=== PATIENT | female | born 1960 | race Asian ===

== ENCOUNTER 2017-10-13 11:48 | Day surgery (SDC) | payer OTHER ==
[~2017-10-13 11:48] MED LIST: Lactated Ringers 1,000 ML IV SCH
--- NOTE | 2017-10-13 12:28 | PCM.PREANE ---
Preanesthetic Assessment - Anesthesia/Transfusion/Family Hx Anesthesia History: Prior Anesthesia Without Reaction Family History of Anesthesia Reaction: No Transfusion History: No Prior Transfusion(s) Intubation History: Unknown - Review of Systems General: No Symptoms Pulmonary: No Symptoms Cardiovascular: No Symptoms Gastrointestinal: Constipation, Hematochezia Neurological: No Symptoms Other: Reports: None - Physical Assessment Height: 1.63 m Weight: 68.946 kg ASA Class: 2 Mental Status: Alert & Oriented x3 Airway Class: Mallampati = 2 Dentition: Reports: Normal Dentition Thyro-Mental Finger Breadths: 3 Mouth Opening Finger Breadths: 3 ROM/Head Extension: Full Lungs: Clear to Auscultation, Normal Respiratory Effort Cardiovascular: Regular Rate, Regular Rhythm - Allergies Allergies/Adverse Reactions: Allergies Allergy/AdvReac Type Severity Reaction Status Date / Time No Known Allergies Allergy Verified 10/09/17 09:20 - Blood Blood Available: No - Anesthesia Plan Pre-Op Medication Ordered: None - Acknowledgements Anesthesia Type Planned: MAC Pt an Appropriate Candidate for the Planned Anesthesia: Yes Alternatives and Risks of Anesthesia Discussed w Pt/Guardian: Yes Pt/Guardian Understands and Agrees with Anesthesia Plan: Yes PreAnesthesia Questionnaire Other HEENT History: wears glasses Gastrointestinal History: Reports: Hepatitis Other Gastrointestinal History: Hepatitis C [employer] History: Reports: - Past Surgical History HEENT Surgical History: Reports: Other (See Below) Other HEENT Surgeries/Procedures: autologous fat transfer from abdomen to under right eye Female Surgical History: Reports: Section - SUBSTANCE USE Smoking Status *Q: Never Smoker Recreational Drug Use History: No - HOME MEDS Home Medications: Home Meds . [No Known Home Meds] 10/09/17 [History] - CURRENT (IN HOUSE) MEDS Current Meds: Current Medications Lactated Ringer's (Ringers, Lactated) 1,000 mls @ 125 mls/hr IV ASDIRECTED [facility] Last Admin: 10/13/17 12:15 Dose: 125 mls/hr
[2017-10-13] MEDS ORDERED: Lidocaine 2% 5 ML SDV ONE (13:16)
[2017-10-13] MEDS ORDERED: Propofol 200 MG/20 ML SDV ONE (13:16)
[2017-10-13] MEDS ORDERED: fentaNYL 100 MCG/2 ML SDV ONE (13:17)
[2017-10-13] MEDS ORDERED: Midazolam 1 MG/ML 2 ML SDV ONE (13:17)
[2017-10-13] MEDS ORDERED: Lactated Ringers 1,000 ML IV SCH (14:15)
--- NOTE | 2017-10-13 14:16 | PCM.OPNOTE ---
- General Post-Op/Procedure Note Date of Surgery/Procedure: 10/13/17 Operative Procedure(s): Colonoscopy with cold rectal polypectomy 2 Pre Op Diagnosis: Rectal bleeding. Desire for colorectal cancer screening. Post-Op Diagnosis: Distal and mid rectal polyps. Anesthesia Technique: MAC (ASA II) Primary Surgeon: Brain Pierce Condition: Good Free Text/Narrative:: Dictation [id number] CPT CODE 78410
--- NOTE | 2017-10-13 16:59 | OR ---
SURGEON: Brain Pierce M.D. DATE OF PROCEDURE: 10/13/2017 OPERATION PERFORMED: Colonoscopy with cold rectal polypectomy x2. ANESTHESIA: MAC. ASA CLASSIFICATION: II. PREOPERATIVE DIAGNOSIS: History of rectal bleeding, desire for colorectal cancer screening. POSTOPERATIVE DIAGNOSIS: Mid and distal rectal polyps. DESCRIPTION OF PROCEDURE: The patient was taken to the endoscopy room and positioned on the endoscopy table in the left lateral decubitus position. Time-out was called for appropriate identification of patient and procedure. Monitored anesthesia care was provided. The colonoscope was inserted into the rectum and advanced with minimal difficulty to the cecum where the colonoscope was retroflexed to visualize the ascending colon from below. The colonoscope was then straightened and slowly withdrawn. The cecum, ascending colon, hepatic flexure, transverse colon, splenic flexure, and descending colon showed no tumors, polyps, diverticula, or angiodysplastic changes. Sigmoid colon demonstrates no diverticular change, stricture, spasm, or bleeding. No polyps were encountered in the sigmoid colon. Two small polyps were encountered in the distal rectum and mid rectum. They were removed separately and sent for separate histologic analysis. No significant bleeding was noted. The colonoscope was withdrawn to the rectum and retroflexed to visualize the anal orifice from above. No tumors, polyps, or acute hemorrhoidal changes were noted. The colonoscope was then straightened, the rectum aspirated, and the colonoscope removed. The patient tolerated the procedure well and was taken to recovery room in stable condition. SANDI / MARTA /[id number]
== END 2017-10-13 14:53 | disposition home or self-care (01) ==
LOC: MW.SDS 11:48
PROVIDERS: ATTEND Surgery
DX: K62.1 Rectal polyp (principal); Z79.2 Long term (current) use of antibiotics
CPT/HCPCS: 45380; J2250; J3010; J7120; 00811; 88305; J2704